=== PATIENT | male | born 2000 | race Caucasian/White ===

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

== ENCOUNTER 2025-08-14 13:56 | Emergency (ER) | payer OTHER, SELFPAY ==
[2025-08-14 13:57] VITALS: BP 115/65; PULSE 94; RESP 16; TEMP 36.6; O2SAT 98
--- NOTE | 2025-08-14 14:05 | RAD_ITS ---
PROCEDURE: RAD/Tibia & Fibula 2 Views
[2025-08-14] MEDS: HYDROcodone Bitartrate/Apap 5/325 Tablet PO (15:34)
--- NOTE | 2025-08-14 15:34 | EX.ED.DYSGE1 ---
HPI History of Present Illness Chief Complaint: Lower Extremity Injury Narrative Narrative: Chief complaint and HPI: 24-year-old male with no significant past medical history presents for evaluation of right ankle pain. Patient states he was out hunting when he was climbing a tree and tripped. States he fell and landed onto his ankle. Denies hitting his head. No LOC. States he was able to walk to the car however was difficult secondary to pain and bearing weight. He denies any knee or foot pain. Denies any numbness or tingling. Review of systems: See HPI Medications: As listed on the chart Allergies: As listed on the chart PFSH: Per chart Vital signs: As listed on the chart. Reviewed. Physical exam: Gen: A&O x3, NAD Head: Normocephalic, atraumatic Eyes: No sclera icterus, conjunctiva clear ENT: Moist mucous membranes CV: Regular rate Resp: Nonlabored respiration Musc: Full range of motion of the right lower extremity except limited in the ankle secondary to pain, right lower extremity is nontender accepted ankle, patient has swelling in the right ankle compared to the left, mild ecchymosis mostly located at the lateral malleolus-this is where most of the pain is located, DP/PT pulses +2 bilaterally, compartments soft, Achilles intact without tenderness, calcaneus without tenderness, normal capillary refill, sensation intact Skin: Warm, dry Neuro: Alert, oriented, grossly intact Psych: Cooperative, appropriate mood and affect [facility] Medications ?Medication ?Instructions ?Recorded ?Last Taken ?Type NK 02/18/18 Unknown History Allergy/AdvReac Type Severity Reaction Status Date / Time No Known Allergies Allergy Verified 08/14/25 13:59 Social History Smoking Status: Unknown if ever smoked EXAM Physical Exam Const Vital Signs: 08/14/25 13:57 Temperature 97.8 F Temperature Source Temporal Pulse Rate 94 Respiratory Rate 16 Blood Pressure 115/65 Blood Pressure Mean 81 Pulse Ox 98 Oxygen Delivery Method Room Air MDM MDM MDM Narrative Medical decision making narrative: 24-year-old male with no significant past medical history presents for evaluation of right ankle pain. Patient states he was out hunting when he was climbing a tree and tripped. States he fell and landed onto his ankle. Denies hitting his head. No LOC. See physical exam findings. Per protocol, patient had an x-ray of the tib/fib performed in triage. I agree with the x-ray that was ordered. Differential diagnosis includes but is not limited to fracture, sprain, contusion. X-ray of the tip/fib was completed by the time I saw the patient. I personally reviewed the imaging, nondisplaced oblique fracture of the distal fibula. Radiology in agreement. Bethelridge ordered for pain. Patient will need splint and crutches. He was updated of all the results and confirmed understanding of the plan. Patient tolerated splint placement well. Patient stable to discharge home. Nonweightbearing to the lower extremity. Follow-up with orthopedics. Splint cannot get wet. He confirmed understand the plan. Patient able to discharge home. Splint placement Indication: Right distal fibula fracture Consent: Risks, benefits, and alternatives discussed with patient and consent obtained Procedure: Patient was given Bethelridge prior to splint placement. Immobilization was performed using splint sleeve, Webril, Ortho-Glass, and Robert bandages and a sugar-tong/posterior splint. The extremity's neurovascular status was re-checked and was unchanged from the pre-procedure exam. The patient tolerated the procedure without complications. Impression: 1. Right close distal fibula fracture, status post splint placement 2. Fall Radiography Diagnostic Testing: Clinical Impression(s) from Imaging Studies Tibia/Fibula X-Ray 08/14/25 14:05 IMPRESSION: No radiopaque foreign body is seen. A nondisplaced or minimally displaced oblique FRACTURE of the distal right fibular shaft is seen. Satisfactory osseous alignment, otherwise. Reading Location: [place] [id number] Discharge Plan Triage Chief Complaint: Lower Extremity Injury ED Provider: Jim Vargas Dx/Rx/DC Orders Prescriptions: No Action NK Primary Care Provider: Vikas Cunningham Referrals: Vikas Cunningham DO [Primary Care Provider, Family Practice] Print Language: Malawian
[2025-08-14 15:36] VITALS: BMI 28.3
[2025-08-14 16:47] VITALS: BP 121/83; PULSE 79; RESP 14; O2SAT 98
[2025-08-14 17:40] VITALS: BP 112/82; PULSE 99; RESP 14; TEMP 36.6; O2SAT 98
== END 2025-08-14 18:15 | disposition home or self-care (01) ==
PROVIDERS: Emergency Provider Surgery; PCP Family Medicine; Visit Provider Surgery
DX: S82.434A Nondisplaced oblique fracture of shaft of right fibula, initial encounter for closed fracture (principal); W14.XXXA Fall from tree, initial encounter
CPT/HCPCS: 29125; 73590; 99283